=== PATIENT | female | born 2000 | race Caucasian/White ===

== ENCOUNTER 2024-09-24 13:49 | Outpatient (AMB) | payer OTHER, SELFPAY ==
--- NOTE | 2024-09-24 14:19 | A.OFFPC_ITS ---
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 She transferred from [facility]. 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 Acne- the patient sees Dermatology at [facility] dermatology. She restarted Accutane 40 mg 5 days ago. This will be her second course. She is on a vitamin d complex and topical tretnoin 0.25% as needed and topical clindamycin 0.1% as needed. She has a history of anxiety and depression. PHQ-9 is positive. She speaks with her therapist every other month. It's 90 dollars per session until she meets her deductible. She is interested in medication. Her brain doesn't turn off to sleep at night. She feels stressed. She endorses anhedonia during the day and fatigue. She says she could lay in bed all day and keep her phone on silent. She lives with her mother and brother. They get along okay though she said she could go a year with only talking to her mother once and be fine with that. No drug or alcohol problems. The patient denies hallucinations, impulsivity or history of other psychiatric diagnosis including bipolar disorder. No history of self-harm/SI. I reviewed recent labs on her phone including normal AST, ALT, creatinine and GFR done at [facility]. Her last physical exam was 04/18/24. ROS: Constitutional: No fevers, chills or unexplained weight loss. Gastrointestinal: No anorexia, nausea, vomiting or diarrhea. No abdominal pain Neurologic: No headache, dizziness, syncope Psychiatric: No SI/HI. Physical exam: Constitutional: Alert, in no distress. Neck: Supple, Full range of motion. No lymphadenopathy. No palpable thyroid masses. Respiratory: Clear to auscultation. Cardiovascular: S1 S2 regular. No murmurs. Psychiatric: Normal mood and affect [facility] Medical History (Updated 09/24/24 @ 14:52 by SAY Casillas) Anxiety and depression Acne vulgaris Surgical History (Updated 09/24/24 @ 14:27 by Ivy Ribera CMA) History of removal of skin mole History of tonsillectomy Family History (Updated 09/24/24 @ 14:31 by Ivy Ribera CMA) Father Heart attack Alcoholism Paternal Uncle Heart attack Paternal Grandfather Heart attack Maternal Grandfather Diabetes Maternal Grandmother Diabetes Paternal Grandmother Diabetes Alzheimer's dementia Maternal Grandfather Diabetes Other Substance use Social History Housing: House Alcohol intake: current Patient Tobacco Use Status: Never used Tobacco e-Cigarette/Vaping Use: Never Used service: No Current occupational status: employed 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 1. Little interest or pleasure in doing things: several days 2. Feeling down, depressed, or hopeless: several days 3. Trouble falling or staying asleep, or sleeping too much: several days 4. Feeling tired or having little energy: several days 5. Poor appetite or overeating: more than half the days 6. Feeling bad about yourself - or that you are a failure or have let yourself or your family down: several days 7. Trouble concentrating on things, such as reading the newspaper or watching television: not at all 8. Moving or speaking so slowly that other people could have noticed. Or the opposite - being so fidgety or restless that you have been moving around a lot more than usual: not at all 9. Thoughts that you would be better off or of hurting yourself in some way: not at all Total score: 7 Depression Screening Interpretation: Positive Depression Screening Follow-up: New Medication prescribed Depression Screening Done: Yes Source: Developed by Drs. Luis Alfredo Hugo, Shae Nash, Mark Nuñez and colleagues, with an educational leeann from [employer] Thrive Questionnaire Date Thrive assessed: 09/17/24 I am a: Patient What is your living situation today?: I have a steady place to live Within the past 12 months, did the food you bought not last and you didn't have the money to get more?: Never true Within the past 12 months, did you worry whether your food would run out before you got money to buy more?: Never true Do you have trouble paying for medicines?: No Do you have trouble getting transportation to medical appointments?: No Do you have trouble paying your heating and electricity bill?: No Do you have trouble taking care of your child, family member or friend?: No Do you have trouble with day-to-day activities such as bathing, preparing meals, shopping, managing finances, etc.?: No Are you currently unemployed and looking for a job?: No Are you interested in more education?: Yes Please select the resources that you would like help with: None Currently or been in a relationship where the following occur: I choose not to answer THRIVE Score: 0 AUDIT C Alcohol Use Questionnaire (AUDIT-C) 1. How often do you have a drink containing alcohol?: Monthly or less 2. How many drinks containing alcohol do you have on a typical day when you are drinking?: 3 or 4 3. How often do you have six or more drinks on one occasion?: Less than monthly Total Score: 3 GWEN-7 AMB Questionnaire GWEN-7 Feeling nervous, anxious, or on edge: 1 = Several days Not being able to stop or control worryin = Not at all Worrying too much about different things: 1 = Several days Trouble relaxin = Several days Being so restless that it is hard to sit still: 0 = Not at all Becoming easily annoyed or irritable: 1 = Several days Feeling afraid as if something awful might happen: 0 = Not at all Total GWEN-7 score (0-4 normal; 5-9 mild; 10-14 moderate; 15-21 severe): 4 Source: Developed by Drs. Luis Alfredo Hugo, Shae Nash, Mark Nuñez and colleagues, with an educational leeann from [employer] Physical exam (Primary Care) Depression Screening Interpretation: Positive Depression Screening Follow-up: New Medication prescribed Thrive Assessment: Date of Thrive Assessment Date Thrive assessed 09/17/24 09/17/24 12:19 Currently or been in a relationship where the following occur: I choose not to answer Coding Level of Care Code New Pt Level 3 (45644) Complex EM visit Add On G2211 Diagnoses Acne vulgaris L70.0 Anxiety and depression F41.9; F32.A Assessment & Plan Assessment & Plan (1) Acne vulgaris: Code(s): L70.0 - Acne vulgaris Category: Medical Plan: Continue management per Dermatology. (2) Anxiety and depression: Code(s): F41.9 - Anxiety disorder, unspecified; F32.A - Depression, unspecified Category: Medical Plan: She will continue therapy which is limited due to [id number] expense. We discussed medication options which are medically necessary since anxiety and depression are impacting her quality of life, and I prescribed fluoxetine 10 mg for 6 days and then increase to 20 mg daily if tolerating okay. No drug interactions with Accutane per up-to-date. We reviewed the black box warning and potential adverse reactions to the medication. We reviewed common side effects. She will contact the office if she has any difficulties with this. We discussed the need for titration based on tolerability and response. She will follow up with me in 4 weeks via telehealth for a medication check. Medications: New fluoxetine Take 1/2 tablet daily for 6 days then increase to 1 tablet daily. 20 mg PO DAILY 30 tabs 1RF
[2024-09-24 14:25] VITALS: BP 110/76; PULSE 71; TEMP 37.1; O2SAT 98; BMI 22.2
== END 2024-09-24 14:54 | disposition home or self-care (01) ==
LOC: HO.HMCFM 13:55
PROVIDERS: PCP Physician Assistant Medical; Visit Provider Physician Assistant Medical
DX: L70.0 Acne vulgaris (principal); F41.9 Anxiety disorder, unspecified; F32.A Depression, unspecified

== ENCOUNTER 2024-10-25 09:38 | Outpatient (AMB) | payer OTHER, SELFPAY ==
--- NOTE | 2024-10-25 13:35 | A.OFFVIS_ITS ---
Intake Visit Reasons: telehealth med check Allergies No Known Allergies Allergy (Verified 09/24/24 14:19) HPI Comments Details: This is a 24-year-old female with a past medical history of anxiety and depression presenting for follow up. Patient started fluoxetine 1 month ago. She is taking 20 mg a day. She denies side effects. She notices improvement on the medication. Specifically, she is less irritable and is now able to fall asleep between 8 and 9:30pm. She wakes up sometimes in the middle of the night for a couple of hours. She continues to endorse anhedonia and stress. She would like to increase the medication. ROS: Constitutional: No fevers, chills or unexplained weight loss. Gastrointestinal: No anorexia, nausea, vomiting or diarrhea. No abdominal pain Psychiatric: No SI/HI. [facility] Medical History (Updated 09/24/24 @ 14:52 by SAY Casillas) Anxiety and depression Acne vulgaris Surgical History (Updated 09/24/24 @ 14:27 by Ivy Ribera CMA) History of removal of skin mole History of tonsillectomy Family History (Updated 09/24/24 @ 14:31 by Ivy Ribera CMA) Father Heart attack Alcoholism Paternal Uncle Heart attack Paternal Grandfather Heart attack Maternal Grandfather Diabetes Maternal Grandmother Diabetes Paternal Grandmother Diabetes Alzheimer's dementia Maternal Grandfather Diabetes Other Substance use Social History (Updated 09/24/24 @ 14:29 by Ivy Ribera CMA) Housing: House Alcohol intake: current Patient Tobacco Use Status: Never used Tobacco e-Cigarette/Vaping Use: Never Used service: No Current occupational status: employed 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 Current occupational exposures/hazards: No Cognitive needs: No Hearing needs: No Vision needs: Yes (glasses) Telehealth Telehealth Telehealth Platform: Telephone Location of provider rendering services: practice address Location of patient: address on file Patient Identification confirmed using: Name, : Yes Telehealth method: voice only Patient verbally consented to treatment: Yes Patient verbally consented to billing insurance company: Yes Patient informed of any privacy concerns related to visit: Yes Minutes spent on Phone/Video with Pt.: 6 Assessment & Plan Assessment & Plan (1) Anxiety and depression: Code(s): F41.9 - Anxiety disorder, unspecified; F32.A - Depression, unspecified Category: Medical Plan: She will continue therapy which is limited due to [id number] expense. Increase fluoxetine to 40 mg daily. Side effects and black box warning reviewed. Follow up in 1 month for re-evaluation. Medications: New fluoxetine 40 mg PO QAM 90 caps 0RF Discontinued fluoxetine Discontinued Reason: Doctor's Order 20 mg PO DAILY 90 tabs 0RF Coding Level of Care Code Tele Est Pt Level 3 (34618) Diagnoses Anxiety and depression F41.9; F32.A
== END 2024-10-25 13:46 | disposition home or self-care (01) ==
LOC: HO.HMCFM 09:38
PROVIDERS: PCP Physician Assistant Medical; Visit Provider Physician Assistant Medical
DX: F41.9 Anxiety disorder, unspecified (principal); F32.A Depression, unspecified

== ENCOUNTER → 2024-10-25 09:38 | Outpatient (BNVA) | payer OTHER, SELFPAY | PROVIDERS: PCP Physician Assistant Medical; Visit Provider Physician Assistant Medical ==

== ENCOUNTER 2024-12-17 14:32 | Outpatient (AMB) | payer OTHER, SELFPAY ==
--- NOTE | 2024-12-17 14:29 | A.OFFPC_ITS ---
Intake Visit Reasons: Med review Intake Note: med review for wellbutrin and fluoxitine Allergies No Known Allergies Allergy (Verified 12/17/24 14:30) Tobacco use date assessed: 09/24/24 Dental Screening Dental Screen Date: 09/24/24 HPI HPI Comments History of Present Illness Details This is a 24-year-old female with a past medical history of anxiety and depression presenting for follow up. She continued fluoxetine 40 mg daily after our last visit. She added bupropion XL 150 mg every morning. She notices difficulty sleeping, irritability and agitation since adding this medication. No SI or HI or increased depression. She does not feel like it has helped treat the depression which we were trying to target. Patient feels that anxiety symptoms are well-controlled on fluoxetine, but she was having persistent anhedonia and depression symptoms. She is going to contact her therapist for follow up. She met her deductible, but she got busy over the holidays and did not schedule a follow up yet. ROS: Constitutional: No fevers, chills or unexplained weight loss. Gastrointestinal: No anorexia, nausea, vomiting or diarrhea. No abdominal pain Psychiatric: No SI/HI. [facility] Medical History (Updated 09/24/24 @ 14:52 by SAY Casillas) Anxiety and depression Acne vulgaris Surgical History (Updated 09/24/24 @ 14:27 by Ivy Ribera CMA) History of removal of skin mole History of tonsillectomy Family History (Updated 09/24/24 @ 14:31 by Ivy Ribera CMA) Father Heart attack Alcoholism Paternal Uncle Heart attack Paternal Grandfather Heart attack Maternal Grandfather Diabetes Maternal Grandmother Diabetes Paternal Grandmother Diabetes Alzheimer's dementia Maternal Grandfather Diabetes Other Substance use Social History (Updated 09/24/24 @ 14:29 by Ivy Ribera CMA) Housing: House Alcohol intake: current Patient Tobacco Use Status: Never used Tobacco e-Cigarette/Vaping Use: Never Used service: No Current occupational status: employed 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 Current occupational exposures/hazards: No Cognitive needs: No Hearing needs: No Vision needs: Yes (glasses) Questionnaire Thrive Questionnaire Date Thrive assessed: 09/17/24 Physical exam (Primary Care) Tobacco/Smoking Status: Tobacco use Status Tobacco use date assessed 09/24/24 12/17/24 14:32 Patient Tobacco Use Status Never used Tobacco 12/17/24 14:32 e-Cigarette/Vaping Use Never Used 12/17/24 14:32 Thrive Assessment: Date of Thrive Assessment Date Thrive assessed 09/17/24 12/17/24 14:32 Telehealth Telehealth Telehealth Platform: Telephone Location of provider rendering services: practice address Location of patient: address on file Patient Identification confirmed using: Name, : Yes Telehealth method: voice only Patient verbally consented to treatment: Yes Patient verbally consented to billing insurance company: Yes Patient informed of any privacy concerns related to visit: Yes Minutes spent on Phone/Video with Pt.: 8 Coding Level of Care Code Tele Est Pt Level 3 (62361) Complex EM visit Add On G2211 Diagnoses Anxiety and depression F41.9; F32.A Assessment & Plan Assessment & Plan (1) Anxiety and depression: Code(s): F41.9 - Anxiety disorder, unspecified; F32.A - Depression, unspecified Category: Medical Plan: She will contact her therapist for follow up. She has met her deductible. She will discontinue Wellbutrin. She will increase fluoxetine to 60 mg daily. Side effects, administration and black box warning reviewed. Refer to Psychiatry for further management. Follow up in 4-6 weeks to reassess fluoxetine dose. Orders: Referrals Psychiatry Outpatient Consultation Service F32.A - Depression, unspecified, F41.9 - Anxiety disorder, unspecified Medications: New fluoxetine Take with fluoxetine 40 mg daily for a total daily dose of 60 mg of fluoxetine. 20 mg PO DAILY 90 caps 0RF Discontinued bupropion HCl XL (Wellbutrin XL) Discontinued Reason: Doctor's Order 150 mg PO QAM 30 tabs 0RF
== END 2024-12-17 15:42 | disposition home or self-care (01) ==
LOC: HO.HMCFM 14:32
PROVIDERS: PCP Physician Assistant Medical; Visit Provider Physician Assistant Medical
DX: F41.9 Anxiety disorder, unspecified (principal); F32.A Depression, unspecified

== ENCOUNTER → 2024-12-17 14:32 | Outpatient (BNVA) | payer OTHER, SELFPAY | PROVIDERS: PCP Physician Assistant Medical; Visit Provider Physician Assistant Medical ==

== ENCOUNTER 2025-01-14 15:47 | Outpatient (AMB) | payer OTHER, SELFPAY ==
--- NOTE | 2025-01-14 15:48 | A.OFFPC_ITS ---
Intake Visit Reasons: 4-6 weeks for a medication check Allergies No Known Allergies Allergy (Verified 01/14/25 15:48) Tobacco use date assessed: 01/14/25 Dental Screening Dental Screen Date: 01/14/25 Did you have a dental visit in the last 12 months?: Yes Did you have a dental problem in the last 6 months where you did not have access to dental care?: No Was dental information given to patient?: Patient has dentist HPI HPI Comments History of Present Illness Details This is a 24-year-old female with a past medical history of anxiety and depression presenting for follow up. She is taking fluoxetine 60 mg daily since our visit. Anxiety symptoms are well-controlled, but she continues to have persistent anhedonia, depression and sleep dysfunction. She is only getting about 4 hours of sleep per night. She has trouble falling asleep and staying asleep. On the weekends she just wants to stay in bed. No SI or HI. She has tried melatonin and Unisom. They were ineffective and caused vivid dreams. She has a therapist. I referred her to Psychiatry, but she did not hear about scheduling a consult yet. We discontinued Wellbutrin because she felt more irritable on this medication, and it did not help with depression. ROS: Constitutional: No fevers, chills or unexplained weight loss. Gastrointestinal: No anorexia, nausea, vomiting or diarrhea. No abdominal pain Psychiatric: No SI/HI. [facility] Medical History Anxiety and depression Acne vulgaris Surgical History History of removal of skin mole History of tonsillectomy Family History Father Heart attack Alcoholism Paternal Uncle Heart attack Paternal Grandfather Heart attack Maternal Grandfather Diabetes Maternal Grandmother Diabetes Paternal Grandmother Diabetes Alzheimer's dementia Maternal Grandfather Diabetes Other Substance use Social History Housing: House Alcohol intake: current Patient Tobacco Use Status: Never used Tobacco e-Cigarette/Vaping Use: Never Used service: No Current occupational status: employed 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 1. Little interest or pleasure in doing things: nearly every day 2. Feeling down, depressed, or hopeless: nearly every day 3. Trouble falling or staying asleep, or sleeping too much: nearly every day 4. Feeling tired or having little energy: nearly every day 5. Poor appetite or overeating: nearly every day 6. Feeling bad about yourself - or that you are a failure or have let yourself or your family down: more than half the days 7. Trouble concentrating on things, such as reading the newspaper or watching television: several days 8. Moving or speaking so slowly that other people could have noticed. Or the opposite - being so fidgety or restless that you have been moving around a lot more than usual: more than half the days 9. Thoughts that you would be better off or of hurting yourself in some way: not at all Total score: 20 Depression Screening Interpretation: Positive Depression Screening Done: Yes 62907 - PHQ-9 Billing: Yes Source: Developed by Drs. Luis Alfredo Hugo, Shae Nash, Mark Nuñez and colleagues, with an educational leeann from [employer] Thrive Questionnaire Date Thrive assessed: 01/14/25 I am a: Patient What is your living situation today?: I have a steady place to live Within the past 12 months, did the food you bought not last and you didn't have the money to get more?: Never true Within the past 12 months, did you worry whether your food would run out before you got money to buy more?: Never true Do you have trouble paying for medicines?: No Do you have trouble getting transportation to medical appointments?: No Do you have trouble paying your heating and electricity bill?: No Do you have trouble taking care of your child, family member or friend?: No Do you have trouble with day-to-day activities such as bathing, preparing meals, shopping, managing finances, etc.?: No Are you currently unemployed and looking for a job?: No Are you interested in more education?: Yes Please select the resources that you would like help with: None Currently or been in a relationship where the following occur: I choose not to answer THRIVE Score: 0 AUDIT C Alcohol Use Questionnaire (AUDIT-C) 1. How often do you have a drink containing alcohol?: Monthly or less 2. How many drinks containing alcohol do you have on a typical day when you are drinking?: 3 or 4 3. How often do you have six or more drinks on one occasion?: Less than monthly Total Score: 3 GWEN-7 AMB Questionnaire GWEN-7 Date GWEN - 7 assessed: 01/14/25 Feeling nervous, anxious, or on edge: 1 = Several days Not being able to stop or control worryin = Several days Worrying too much about different things: 1 = Several days Trouble relaxin = Several days Being so restless that it is hard to sit still: 0 = Not at all Becoming easily annoyed or irritable: 3 = Nearly every day Feeling afraid as if something awful might happen: 0 = Not at all Total GWEN-7 score (0-4 normal; 5-9 mild; 10-14 moderate; 15-21 severe): 7 Source: Developed by Drs. Luis Alfredo Hugo, Shae Nash, Mark Nuñez and colleagues, with an educational leeann from [employer] GWEN-7 Assessment Billing GWEN-7 Assessment Tool: GWEN-7 Assessment 85563 Physical exam (Primary Care) Tobacco/Smoking Status: Tobacco use Status Tobacco use date assessed 01/14/25 01/14/25 15:51 Patient Tobacco Use Status Never used Tobacco 01/14/25 15:51 e-Cigarette/Vaping Use Never Used 01/14/25 15:51 PHQ-9: PHQ-9 Score PHQ-9: Total score 20 01/14/25 15:51 Depression Screening Interpretation: Positive Thrive Assessment: Date of Thrive Assessment Date Thrive assessed 01/14/25 01/14/25 15:51 Currently or been in a relationship where the following occur: I choose not to answer Telehealth Telehealth Telehealth Platform: Telephone Location of provider rendering services: practice address Location of patient: address on file Patient Identification confirmed using: Name, : Yes Telehealth method: voice only Patient verbally consented to treatment: Yes Patient verbally consented to billing insurance company: Yes Patient informed of any privacy concerns related to visit: Yes Minutes spent on Phone/Video with Pt.: 16 Coding Level of Care Code Tele Est Pt Level 4 (32502) Complex EM visit Add On G2211 Diagnoses Anxiety and depression F41.9; F32.A Additional Codes GWEN-7 Assessment Billing - GWEN-7 Assessment Tool: GWEN-7 Assessment 56775 ([id number]) PHQ-9 - 56628 - PHQ-9 Billing: Yes ([id number]) Assessment & Plan Assessment & Plan (1) Anxiety and depression: Code(s): F41.9 - Anxiety disorder, unspecified; F32.A - Depression, unspecified Category: Medical Plan: She will contact her therapist for follow up. I will follow up on her psychiatry referral. Continue fluoxetine 60 mg daily. Side effects, administration and black box warning reviewed. We discussed medications for sleep. She has concerned about potential side effects on trazodone. She will try hydroxyzine 25 mg at bedtime. She can increase to 50 mg if this is ineffective. Advised to take this when she has at least 8 hours to sleep. Patient is advised not to drive or operate heavy machinery after taking this medication. She should not drink alcohol with this medication or take other sedating medications. Follow up in 2 weeks for reassessment. Medications: New hydroxyzine HCl 25 - 50 mg (1 - 2 x 25 mg) PO BEDTIME 30 days 60 tabs 3RF
== END 2025-01-14 16:24 | disposition home or self-care (01) ==
LOC: HO.HMCFM 15:47
PROVIDERS: PCP Physician Assistant Medical; Visit Provider Physician Assistant Medical
DX: F41.9 Anxiety disorder, unspecified (principal); F32.A Depression, unspecified

== ENCOUNTER → 2025-01-14 15:47 | Outpatient (BNVA) | payer OTHER, SELFPAY | PROVIDERS: PCP Physician Assistant Medical; Visit Provider Physician Assistant Medical | DX: F41.9 Anxiety disorder, unspecified (principal); F32.A Depression, unspecified; Z79.899 Other long term (current) drug therapy | CPT/HCPCS: 96127 ==

== ENCOUNTER 2025-01-31 16:06 | Outpatient (AMB) | payer OTHER, SELFPAY ==
--- NOTE | 2025-01-31 16:02 | MHC.PC.OV ---
Intake Visit Reasons: telehealth appointment in 2 weeks for a med check? Intake Note: Medication follow up Outbound Call Center Representative Required: No Allergies No Known Allergies Allergy (Verified 01/14/25 15:48) Tobacco use date assessed: 01/31/25 Dental Screening Dental Screen Date: 01/14/25 HPI HPI Comments History of Present Illness Details This is a 24-year-old female with a past medical history of anxiety and depression presenting for follow up. She is taking fluoxetine 60 mg daily since our visit. Anxiety symptoms are well-controlled with this medication, but she continued to endorse anhedonia, depression and sleep dysfunction. She has trouble falling asleep and staying asleep. On the weekends she just wants to stay in bed. No SI or HI. She has tried melatonin and Unisom. They were ineffective and caused vivid dreams. She started hydroxyzine at our last visit. She takes 25 mg at night during the weekend 50 mg on the weekends. It helps her to fall asleep and stay asleep. She gets at least 8 hours of sleep when she takes the medication. She denies side effects. She has a therapist. I referred her to Psychiatry, but she did not hear about scheduling a consult yet though I did follow up on the referral after her last visit. We discontinued Wellbutrin because she felt more irritable on this medication, and it did not help with depression. ROS: Constitutional: No fevers, chills or unexplained weight loss. Gastrointestinal: No anorexia, nausea, vomiting or diarrhea. No abdominal pain Psychiatric: No SI/HI. [facility] Medical History Anxiety and depression Acne vulgaris Surgical History History of removal of skin mole History of tonsillectomy Family History Father Heart attack Alcoholism Paternal Uncle Heart attack Paternal Grandfather Heart attack Maternal Grandfather Diabetes Maternal Grandmother Diabetes Paternal Grandmother Diabetes Alzheimer's dementia Maternal Grandfather Diabetes Other Substance use Social History (Updated 01/31/25 @ 16:05 by Ivy Ribera CMA) Housing: House Alcohol intake: current Patient Tobacco Use Status: Never used Tobacco e-Cigarette/Vaping Use: Never Used Use of substances other than those prescribed or required for medical reasons: No service: No Current occupational status: employed 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 Luis Alfredo Hugo, Shae Nash, Mark Nuñez and colleagues, with an educational leeann from [employer]. Physical exam (Primary Care) Tobacco/Smoking Status: Tobacco use Status Tobacco use date assessed 01/31/25 01/31/25 16:05 Patient Tobacco Use Status Never used Tobacco 01/31/25 16:05 e-Cigarette/Vaping Use Never Used 01/31/25 16:05 Thrive Assessment: Date of Thrive Assessment Date Thrive assessed 01/14/25 01/31/25 16:05 Telehealth Telehealth Telehealth Platform: Telephone Location of provider rendering services: practice address Location of patient: address on file Patient Identification confirmed using: Name, : Yes Telehealth method: voice only Patient verbally consented to treatment: Yes Patient verbally consented to billing insurance company: Yes Patient informed of any privacy concerns related to visit: Yes Minutes spent on Phone/Video with Pt.: 5 Coding Level of Care Code Tele Est Pt Level 3 (05398) Diagnoses Anxiety and depression F41.9; F32.A Assessment & Plan Assessment & Plan (1) Anxiety and depression: Code(s): F41.9 - Anxiety disorder, unspecified; F32.A - Depression, unspecified Category: Medical Plan: She will continue therapy. I will follow up on her psychiatry referral again. Continue fluoxetine 60 mg daily. Side effects, administration and black box warning reviewed. Continue hydroxyzine 25-50 mg at bedtime. Advised to take this when she has at least 8 hours to sleep. Patient is advised not to drive or operate heavy machinery after taking this medication. She should not drink alcohol with this medication or take other sedating medications. Follow up in 6 weeks for reassessment.
== END 2025-01-31 16:29 | disposition home or self-care (01) ==
LOC: HO.HMCFM 16:06
PROVIDERS: PCP Physician Assistant Medical; Visit Provider Physician Assistant Medical
DX: F41.9 Anxiety disorder, unspecified (principal); F32.A Depression, unspecified

== ENCOUNTER 2025-04-29 16:10 | Outpatient (AMB) | payer OTHER, SELFPAY ==
--- NOTE | 2025-04-29 16:12 | MHC.PC.OV ---
Vital Signs 04/29/25 16:16 Height 5 ft 11.2 in Weight 195 lb 2 oz BMI 27.1 BP 104/68 Blood Pressure Location Rt brachial Position Sitting Pulse 73 Pulse Source Pulse Oximeter Temp 98.6 F Temp Source Temporal Artery Scan Pulse Oximetry (%) 99 Oxygen Delivery Method Room Air Intake Visit Reasons: Physical Intake Note: Hoang presents in the office today for her physical. Allergies No Known Allergies Allergy (Verified 04/29/25 16:15) Tobacco use date assessed: 04/29/25 Dental Screening Dental Screen Date: 04/29/25 Did you have a dental visit in the last 12 months?: Yes Did you have a dental problem in the last 6 months where you did not have access to dental care?: No Was dental information given to patient?: Patient has dentist HPI HPI Comments History of Present Illness Details This is a 24-year-old female with a past medical history of anxiety and depression presenting for follow up. She is taking fluoxetine 60 mg daily since our visit. Anxiety symptoms are well-controlled with this medication, but she continued to endorse anhedonia, depression and sleep dysfunction. She has trouble falling asleep and staying asleep. On the weekends she just wants to stay in bed. No SI or HI. She has tried melatonin and Unisom. They were ineffective and caused vivid dreams. She started hydroxyzine at our last visit. She takes 25 mg at night during the weekend 50 mg on the weekends. It helps her to fall asleep and stay asleep. She gets at least 8 hours of sleep when she takes the medication. She denies side effects. She has a therapist. I referred her to Psychiatry, but she did not hear about scheduling a consult yet though I did follow up on the referral after her last 2 visits. We discontinued Wellbutrin because she felt more irritable on this medication, and it did not help with depression. She is overdue to see the ginner helper. She will call to schedule this. She endorses concerns about her weight. Her BMI is 27.1 today. She has gained 30 lb since last fall. She is following a low-carbohydrate diet. She is walking every day and goes to the gym 4-5 times per week. She also has tried intermittent fasting. She tried metformin, but it caused diarrhea. ROS: Constitutional: No unexplained weight loss, fever, chills or night sweats. Eyes: No vision changes, blurry vision, double vision, eye pain, eye redness, eye discharge. ENT: No hearing loss, sneezing, congestion, runny nose or sore throat. Respiratory: No shortness of breath, cough or sputum production. Cardiovascular: No chest pain, chest pressure or chest discomfort. No palpitations or pedal edema. Gastrointestinal: No anorexia, nausea, vomiting or diarrhea. No abdominal pain or blood in stool. Genitourinary: No dysuria, hematuria, urinary frequency. Neurologic: No headache, dizziness, syncope, unilateral weakness, ataxia, numbness or tingling in the extremities. Musculoskeletal: No muscle pain, back pain, joint pain or swelling. Hematologic/Lymphatics: No bleeding or bruising. No painful lymph nodes. Skin: No rash . Endocrine: No cold or heat intolerance. No polyuria or polydipsia. Psychiatric: see HPI Physical exam: Constitutional: Alert, in no distress. Head: Normocephalic. Eyes: Pupils are equal, round and reactive to light. Extraocular muscles intact. Ear, Nose and Throat: Canals clear. TMs normal. Normal nasal mucosa. No nasal discharge. No oral lesions. Neck: Supple, Full range of motion. No lymphadenopathy. No palpable thyroid masses. Respiratory: Clear to auscultation. Cardiovascular: S1 S2 regular. No murmurs. Gastrointestinal: Abdomen soft, non-tender, non-distended. Normal bowel sounds. No palpable masses. Neurologic: No focal neurological deficits. Symmetric patellar reflexes. Moves all extremities spontaneously. Sensation intact bilaterally. Skin: No rashes Musculoskeletal: No gross deformities. Normal range of motion. Extremities: Warm and well perfused. No clubbing, cyanosis or edema. Psychiatric: Normal mood and affect [facility] Medical History (Updated 04/29/25 @ 17:25 by SAY Casillas) Overweight Routine physical examination Screening for cardiovascular condition Anxiety and depression Acne vulgaris Surgical History History of removal of skin mole History of tonsillectomy Family History Father Heart attack Alcoholism Paternal Uncle Heart attack Paternal Grandfather Heart attack Maternal Grandfather Diabetes Maternal Grandmother Diabetes Paternal Grandmother Diabetes Alzheimer's dementia Maternal Grandfather Diabetes Other Substance use Social History (Updated 04/29/25 @ 16:16 by Priscilla Noriega MA) Housing: House Alcohol intake: current Patient Tobacco Use Status: Never used Tobacco e-Cigarette/Vaping Use: Never Used Second Hand Smoke Exposure: No service: No Current occupational status: employed 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 1. Little interest or pleasure in doing things: several days 2. Feeling down, depressed, or hopeless: several days 3. Trouble falling or staying asleep, or sleeping too much: several days 4. Feeling tired or having little energy: several days 5. Poor appetite or overeating: more than half the days 6. Feeling bad about yourself - or that you are a failure or have let yourself or your family down: not at all 7. Trouble concentrating on things, such as reading the newspaper or watching television: not at all 8. Moving or speaking so slowly that other people could have noticed. Or the opposite - being so fidgety or restless that you have been moving around a lot more than usual: not at all 9. Thoughts that you would be better off or of hurting yourself in some way: not at all Total score: 6 Depression Screening Interpretation: Positive Depression Screening Follow-up: Existing condition and In treatment Depression Screening Done: Yes 99507 - PHQ-9 Billing: Yes Source: Developed by Drs. Luis Alfredo Hugo, Shae Nash, Mark Nuñez and colleagues, with an educational leeann from [employer]. Thrive Questionnaire Date Thrive assessed: 04/29/25 I am a: Patient What is your living situation today?: I have a steady place to live Within the past 12 months, did the food you bought not last and you didn't have the money to get more?: Never true Within the past 12 months, did you worry whether your food would run out before you got money to buy more?: Never true Do you have trouble paying for medicines?: No Do you have trouble getting transportation to medical appointments?: No Do you have trouble paying your heating and electricity bill?: No Do you have trouble taking care of your child, family member or friend?: No Do you have trouble with day-to-day activities such as bathing, preparing meals, shopping, managing finances, etc.?: No Are you currently unemployed and looking for a job?: No Are you interested in more education?: Yes Please select the resources that you would like help with: None Currently or been in a relationship where the following occur: No concerns reported THRIVE Score: 0 AUDIT C Alcohol Use Questionnaire (AUDIT-C) 1. How often do you have a drink containing alcohol?: 2-4 times a month 2. How many drinks containing alcohol do you have on a typical day when you are drinking?: 3 or 4 3. How often do you have six or more drinks on one occasion?: Less than monthly Total Score: 4 Score Reviewed/Action Taken: No GWEN-7 AMB Questionnaire GWEN-7 Date GWEN - 7 assessed: 04/29/25 Feeling nervous, anxious, or on edge: 1 = Several days Not being able to stop or control worryin = Not at all Worrying too much about different things: 1 = Several days Trouble relaxin = Not at all Being so restless that it is hard to sit still: 0 = Not at all Becoming easily annoyed or irritable: 1 = Several days Feeling afraid as if something awful might happen: 0 = Not at all Total GWEN-7 score (0-4 normal; 5-9 mild; 10-14 moderate; 15-21 severe): 3 Source: Developed by Drs. Luis Alfredo Hugo, Shae Nash, Mark Nuñez and colleagues, with an educational leeann from [employer]. GWEN-7 Assessment Billing GWEN-7 Assessment Tool: GWEN-7 Assessment 27683 Physical exam (Primary Care) Vital Signs: Last Vital Signs Temp 98.6 F 04/29/25 16:16 Pulse 73 04/29/25 16:16 BP 104/68 04/29/25 16:16 Pulse Ox 99 04/29/25 16:16 Oxygen Delivery Method Room Air 04/29/25 16:16 BMI result Body Mass Index 27.1 Tobacco/Smoking Status: Tobacco use Status Tobacco use date assessed 04/29/25 04/29/25 16:19 Patient Tobacco Use Status Never used Tobacco 04/29/25 16:16 e-Cigarette/Vaping Use Never Used 04/29/25 16:16 PHQ-9: PHQ-9 Score PHQ-9: Total score 6 04/29/25 16:14 Depression Screening Interpretation: Positive Depression Screening Follow-up: Existing condition and In treatment Thrive Assessment: Date of Thrive Assessment Date Thrive assessed 04/29/25 04/29/25 16:14 Currently or been in a relationship where the following occur: No concerns reported Coding Level of Care Code Est Pt Prev Care 18-39y(02575) Diagnoses Overweight E66.3 Routine physical examination Z00.00 Screening for cardiovascular condition Z13.6 Anxiety and depression F41.9; F32.A Additional Codes GWEN-7 Assessment Billing - GWEN-7 Assessment Tool: GWEN-7 Assessment 58442 ([id number]) PHQ-9 - 39635 - PHQ-9 Billing: Yes ([id number]) Assessment & Plan Assessment & Plan (1) Overweight: Code(s): E66.3 - Overweight Category: Medical Plan: Increase weight despite lifestyle modifications. Check labs including TSH. Continue efforts at weight loss including portion control, low carbohydrate low sugar diet and avoidance of alcohol. She is going to the gym and walking. Metformin intolerant. She denies contraindications to GLP 1. Submitted Zepbound. Potential side effects including increased depression reviewed with the patient. If she develops the side effects she will stop medication and contact the office. Reviewed titration schedule. If this is not covered by her insurance we discussed trial of phentermine. (2) Routine physical examination: Code(s): Z00.00 - Encounter for general adult medical examination without abnormal findings Category: Medical Plan: Patient is seen today for a routine physical. As part of this visit we reviewed the following issues, which are considered and essential part of preventative health in this age group: - Breast Cancer screening - Annual [employer] [place] exam - Screening for colon cancer - Blood pressure screening - Cholesterol screening - Osteoporosis prevention including calcium/vitamin D intake, weight bearing exercise & smoking cessation - Nutritional and exercise counseling - Counseling of injury prevention including fire prevention, smoke alarms and seat belt usage - Screening for depression - Prevention of and/or testing for infectious diseases- declined screening for STIs - Education about skin cancer - Recommendations about immunizations - Recommendation of an eye exam - Screening for substance abuse (3) Screening for cardiovascular condition: Code(s): Z13.6 - Encounter for screening for cardiovascular disorders Category: Medical (4) Anxiety and depression: Code(s): F41.9 - Anxiety disorder, unspecified; F32.A - Depression, unspecified Category: Medical Plan: She has a therapist. I sent a message to nursing to find out if she can call Psychiatry to schedule her appointment or if they can contact psychiatry regarding the referral since the patient has still not heard about it. Continue current medications. Plan Follow up in 3 months for med check. Orders: Orders Comprehensive Met. Panel Today F32.A - Depression, unspecified, F41.9 - Anxiety disorder, unspecified, Z00.00 - Encounter for general adult medical examination without abnormal findings, Z13.6 - Encounter for screening for cardiovascular disorders Lipid Panel Today F32.A - Depression, unspecified, F41.9 - Anxiety disorder, unspecified, Z00.00 - Encounter for general adult medical examination without abnormal findings, Z13.6 - Encounter for screening for cardiovascular disorders TSH reflex Free T4 Today F32.A - Depression, unspecified, F41.9 - Anxiety disorder, unspecified, Z00.00 - Encounter for general adult medical examination without abnormal findings, Z13.6 - Encounter for screening for cardiovascular disorders Vitamin B12 Today F32.A - Depression, unspecified, F41.9 - Anxiety disorder, unspecified, Z00.00 - Encounter for general adult medical examination without abnormal findings, Z13.6 - Encounter for screening for cardiovascular disorders, Z91.89 - Other specified personal risk factors, not elsewhere classified Complete Blood Count no Diff Today F32.A - Depression, unspecified, F41.9 - Anxiety disorder, unspecified, Z00.00 - Encounter for general adult medical examination without abnormal findings, Z13.6 - Encounter for screening for cardiovascular disorders Cortisol Random Today E66.9 - Obesity, unspecified Medications: New tirzepatide (weight loss) (Zepbound) for 4 weeks 2.5 mg (0.5 mL) subcut QWEEK 2 mL 0RF
[2025-04-29 16:16] VITALS: BP 104/68; PULSE 73; TEMP 37; O2SAT 99; BMI 27.1
== END 2025-04-29 17:05 | disposition home or self-care (01) ==
LOC: HO.HMCFM 16:11
PROVIDERS: PCP Physician Assistant Medical; Visit Provider Physician Assistant Medical
DX: E66.3 Overweight (principal); Z00.00 Encounter for general adult medical examination without abnormal findings; Z13.6 Encounter for screening for cardiovascular disorders; F41.9 Anxiety disorder, unspecified; F32.A Depression, unspecified

== ENCOUNTER → 2025-04-29 16:10 | Outpatient (BNVA) | payer OTHER, SELFPAY | PROVIDERS: PCP Physician Assistant Medical; Visit Provider Physician Assistant Medical | DX: Z00.00 Encounter for general adult medical examination without abnormal findings (principal); F32.A Depression, unspecified; F41.9 Anxiety disorder, unspecified; Z13.6 Encounter for screening for cardiovascular disorders; E66.3 Overweight; Z68.27 Body mass index [BMI] 27.0-27.9, adult; Z13.30 Encounter for screening examination for mental health and behavioral disorders, unspecified; Z71.3 Dietary counseling and surveillance | CPT/HCPCS: 96127 ==

== ENCOUNTER 2025-05-27 13:39 | Outpatient (AMB) | payer OTHER, SELFPAY ==
--- NOTE | 2025-05-27 13:43 | MHC.PC.OV ---
Vital Signs 05/27/25 13:46 Height 5 ft 11.2 in Weight 197 lb 2 oz BMI 27.3 BP 108/66 Blood Pressure Location Rt brachial Position Sitting Pulse 77 Pulse Source Pulse Oximeter Temp 98.3 F Temp Source Temporal Artery Scan Pulse Oximetry (%) 97 Oxygen Delivery Method Room Air Intake Visit Reasons: blood pressure/med check Intake Note: Hoang presents in the office today for a blood pressure check and medication check in. Allergies No Known Allergies Allergy (Verified 05/27/25 13:45) Tobacco use date assessed: 05/27/25 Dental Screening Dental Screen Date: 05/27/25 Did you have a dental visit in the last 12 months?: Yes Did you have a dental problem in the last 6 months where you did not have access to dental care?: No Was dental information given to patient?: Patient has dentist HPI HPI Comments History of Present Illness Details This is a 24-year-old female with a past medical history of anxiety and depression presenting for follow up. She has been taking fluoxetine 60 mg a day. It helped with anxiety, but she continued to endorse anhedonia, depression and sleep dysfunction. She reported just wanting to stay in bed on weekends. We discontinued Wellbutrin because she felt more irritable on this medication, and it did not help with depression. She takes 25 mg of hydroxyzine nightly during the weekend 50 mg on the weekends which helps her to fall and stay asleep. She gets at least 8 hours of sleep on this medicine. She denies side effects to it. She has found that fluoxetine significantly increases her appetite so she has not been taking it consistently, and she stopped it 5 days ago. She has a therapist, but she has not checked in with her recently. She is on a wait list for Psychiatry. She also has a number to call now to see where she is at on a wait list. She is tolerating phentermine without side effects, but she has not appreciated a significant impact yet on her weight or appetite. She feels like the fluoxetine canceled out the effect. Her insurance does not cover GLP 1. ROS: Constitutional: No unexplained weight loss, fever, chills or night sweats. Respiratory: No shortness of breath Cardiovascular: No chest pain, chest pressure or chest discomfort. No palpitations or pedal edema. Endocrine: No cold or heat intolerance. No polyuria or polydipsia. Psychiatric: see HPI Physical exam: Constitutional: Alert, in no distress. Neck: Supple, Full range of motion. No lymphadenopathy. No palpable thyroid masses. Respiratory: Clear to auscultation. Cardiovascular: S1 S2 regular. No murmurs. Extremities: Warm and well perfused. No clubbing, cyanosis or edema. Psychiatric: Normal mood and affect [facility] Medical History (Updated 05/27/25 @ 14:19 by SAY Casillas) Insomnia Overweight Routine physical examination Screening for cardiovascular condition Anxiety and depression Acne vulgaris Surgical History History of removal of skin mole History of tonsillectomy Family History Father Heart attack Alcoholism Paternal Uncle Heart attack Paternal Grandfather Heart attack Maternal Grandfather Diabetes Maternal Grandmother Diabetes Paternal Grandmother Diabetes Alzheimer's dementia Maternal Grandfather Diabetes Other Substance use Social History (Updated 05/27/25 @ 13:46 by Priscilla Noriega MA) Housing: House Alcohol intake: current Patient Tobacco Use Status: Never used Tobacco e-Cigarette/Vaping Use: Never Used Second Hand Smoke Exposure: No Use of substances other than those prescribed or required for medical reasons: No service: No Current occupational status: employed 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 Current occupational exposures/hazards: No Cognitive needs: No Hearing needs: No Vision needs: Yes (glasses) Questionnaire Thrive Questionnaire Date Thrive assessed: 04/29/25 I am a: Patient What is your living situation today?: I have a steady place to live Within the past 12 months, did the food you bought not last and you didn't have the money to get more?: Never true Within the past 12 months, did you worry whether your food would run out before you got money to buy more?: Never true Do you have trouble paying for medicines?: No Do you have trouble getting transportation to medical appointments?: No Do you have trouble paying your heating and electricity bill?: No Do you have trouble taking care of your child, family member or friend?: No Do you have trouble with day-to-day activities such as bathing, preparing meals, shopping, managing finances, etc.?: No Are you currently unemployed and looking for a job?: No Are you interested in more education?: Yes Please select the resources that you would like help with: None Currently or been in a relationship where the following occur: No concerns reported THRIVE Score: 0 GWEN-7 AMB Questionnaire GWEN-7 Date GWEN - 7 assessed: 04/29/25 Source: Developed by Drs. Luis Alfredo Hugo, Shae Nash, Mark Nuñez and colleagues, with an educational leeann from [employer]. Physical exam (Primary Care) Vital Signs: Last Vital Signs Temp 98.3 F 05/27/25 13:46 Pulse 77 05/27/25 13:46 BP 108/66 05/27/25 13:46 Pulse Ox 97 05/27/25 13:46 Oxygen Delivery Method Room Air 05/27/25 13:46 BMI result Body Mass Index 27.3 Tobacco/Smoking Status: Tobacco use Status Tobacco use date assessed 04/29/25 05/27/25 13:44 Patient Tobacco Use Status Never used Tobacco 05/27/25 13:46 e-Cigarette/Vaping Use Never Used 05/27/25 13:46 Thrive Assessment: Date of Thrive Assessment Date Thrive assessed 04/29/25 05/27/25 13:44 Currently or been in a relationship where the following occur: No concerns reported Coding Level of Care Code Est Pt Level 4 (40094) Complex EM visit Add On G2211 Diagnoses Anxiety and depression F41.9; F32.A Insomnia due to other mental disorder F51.05; F99 Insomnia type: due to other mental disorder Overweight E66.3 Assessment & Plan Assessment & Plan (1) Anxiety and depression: Code(s): F41.9 - Anxiety disorder, unspecified; F32.A - Depression, unspecified Category: Medical (2) Insomnia: Code(s): G47.00 - Insomnia, unspecified Category: Medical Qualifiers: Insomnia type: due to other mental disorder Qualified Code(s): F51.05 - Insomnia due to other mental disorder; F99 - Mental disorder, not otherwise specified (3) Overweight: Code(s): E66.3 - Overweight Category: Medical Plan She will remain off fluoxetine due to increased appetite on the medication. She is trying to lose weight. Trial of sertraline 25 mg every evening with food for a week and then increase to 50 mg. Black box warning, side effects and administration reviewed. Recommended follow up with therapist. She is on a wait list for Psychiatry. Continue sleep hygiene and hydroxyzine as needed for insomnia. She can increase phentermine to 30 mg daily. Side effects reviewed. If she develops difficulty with side effects she will decrease to 15 mg daily again. Follow up in 4-6 weeks for a medication check. Medications: New sertraline Take 1/2 tab po every evening with food for a week then increase to 1 tab 50 mg PO DAILY 30 tabs 1RF Changed From phentermine Administer before breakfast or 1 to 2 hours after breakfast 15 mg PO QAM 30 caps 0RF To phentermine Administer before breakfast or 1 to 2 hours after breakfast 30 mg (2 x 15 mg) PO QAM 60 caps 0RF Discontinued fluoxetine Discontinued Reason: Doctor's Order 40 mg PO QAM 90 caps 0RF fluoxetine Take with fluoxetine 40 mg daily for a total daily dose of 60 mg of fluoxetine. Discontinued Reason: Doctor's Order 20 mg PO DAILY 90 caps 0RF
[2025-05-27 13:46] VITALS: BP 108/66; PULSE 77; TEMP 36.8; O2SAT 97; BMI 27.3
== END 2025-05-27 15:49 | disposition home or self-care (01) ==
LOC: HO.HMCFM 13:40
PROVIDERS: PCP Physician Assistant Medical; Visit Provider Physician Assistant Medical
DX: F41.9 Anxiety disorder, unspecified (principal); F32.A Depression, unspecified; F51.05 Insomnia due to other mental disorder; F99 Mental disorder, not otherwise specified; E66.3 Overweight

== ENCOUNTER 2025-06-06 14:53 | Outpatient (AMB) | payer OTHER, SELFPAY ==
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
== END 2025-06-06 15:56 | disposition home or self-care (01) ==
LOC: HO.HOP 14:53
PROVIDERS: PCP Physician Assistant Medical; Visit Provider Clinical Nurse Specialist Psychiatric/Mental Health, Adult
DX: F41.9 Anxiety disorder, unspecified (principal); F32.A Depression, unspecified; F43.10 Post-traumatic stress disorder, unspecified
CPT/HCPCS: 90792

== ENCOUNTER → 2025-06-06 14:53 | Outpatient (BNVA) | payer OTHER, SELFPAY | PROVIDERS: PCP Physician Assistant Medical; Visit Provider Clinical Nurse Specialist Psychiatric/Mental Health, Adult | DX: F41.9 Anxiety disorder, unspecified (principal); F32.A Depression, unspecified; F43.10 Post-traumatic stress disorder, unspecified; Z79.899 Other long term (current) drug therapy | CPT/HCPCS: 90792 ==